=== PATIENT | female | born 1940 | race Hispanic/Latino ===

== ENCOUNTER → 2020-06-07 | Outpatient (CLI) | payer OTHER ==
[2020-06-07 14:08] LABS: BASOPHILS % (AUTO) 0.9 % (0.0-5.0); EOSINOPHILS % (AUTO) 6.3 % (0.0-8.0); HEMATOCRIT 39.7 % (36-48); LYMPHOCYTES % (AUTO) 39.2 % (21.0-51.0); MEAN CORPUSCULAR HEMOGLOBIN 27.5 pg (27.0-33.0); MEAN CORPUSCULAR HGB CONC 32.7 g/dL (32.0-36.0); MEAN CORPUSCULAR VOLUME 84.1 fL (79-99); MONOCYTES % (AUTO) 4.6 % (3.0-13.0); NEUTROPHILS % (AUTO) 48.7 % (40.0-77.0); PLATELET COUNT (AUTO) 285 K/uL (130-400); RED BLOOD CELL COUNT(AUTO) 4.72 MIL/uL (4.00-5.50); RED CELL DISTRIBUTION WIDTH 14.5 % (11.0-15.5); WHITE BLOOD COUNT (AUTO) 7.7 K/uL (4.8-10.8)
[2020-06-07 15:17] LABS: ERYTHROCYTE SEDIMENTATION RATE 38 MM/HR (0-30)
== END | disposition home or self-care (01) ==
LOC: RAH 13:28
PROVIDERS: ATTEND Neuromusculoskeletal Medicine & OMM
DX: M43.16 Spondylolisthesis, lumbar region (principal); M47.24 Other spondylosis with radiculopathy, thoracic region; M48.04 Spinal stenosis, thoracic region; M19.90 Unspecified osteoarthritis, unspecified site; D64.9 Anemia, unspecified; G95.89 Other specified diseases of spinal cord; M89.38 Hypertrophy of bone, other site; K80.20 Calculus of gallbladder without cholecystitis without obstruction
CPT/HCPCS: 36415; 72040; 72072; 72100; 85025; 85651; 86038; 86140; 86215; 86235; 86431